=== PATIENT | male | born 1985 | race Two or more races ===

== ENCOUNTER 2021-02-08 06:26 | Emergency (ER) | payer SELFPAY ==
[2021-02-08] MEDS ORDERED: Ketorolac 30 MG/ML SDV IM ONE (06:49)
[2021-02-08] MEDS ORDERED: Cyclobenzaprine 10 MG Tab PO ONE (06:49)
--- NOTE | 2021-02-08 06:55 | EDM.PDOC ---
ED HPI GENERAL MEDICAL PROBLEM - General Chief Complaint: Back Pain or Injury Stated Complaint: BACK PAIN Time Seen by Provider: 02/08/21 06:40 - History of Present Illness INITIAL COMMENTS - FREE TEXT/NARRATIVE: HISTORY AND PHYSICAL: History of present illness: This is a healthy 35-year-old gentleman with no significant past medical history who presents ER today complaining of 3 repeat his left lower back. Patient reports that he has had back pain for approximately 1 month. Patient reports that 2 days ago he started working out and doing legs again and today the pain is excruciating. 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 Patient denies any recent fevers, shakes, chills, nausea, vomiting, diarrhea, dysuria, frequency, urgency, chest pain, shortness of breath. Patient denies any numbness to his upper or lower extremities. Patient denies any loss of bowel or bladder function. Patient denies any paresthesias to his perineum. Patient reports he has not taken any medications thus far for his pain prior to coming to the ED. Review of systems: As per history of present illness and below otherwise all systems reviewed and negative. Past medical history: As per history of present illness and as reviewed below otherwise noncontributory. Surgical history: As per history of present illness and as reviewed below otherwise noncontributory. Social history: No reported history of drug or alcohol abuse. Family history: As per history of present illness and as reviewed below otherwise noncontributory. Physical exam: This patient was seen and evaluated during the 2019 SARS-CoV-2 novel coronavirus pandemic period. Community viral transmission is ongoing at time of this encounter and the emergency department is operating under pandemic response procedures. Constitutional: Patient is oriented to person, place, and time. Appears well- developed and well-nourished. No distress. HEENT: Moist mucous membranes Head: Normocephalic and atraumatic Eyes: Right eye exhibits no discharge. Left eye exhibits no discharge. No scleral icterus Neck: Normal range of motion. No tracheal deviation present. Cardiovascular: Normal rate and regular rhythm. Pulmonary: Effort normal, no respiratory distress. Abdominal: No distention Musculoskeletal: Normal range of motion Neurologic: Alert and oriented to person, place and time. Skin: [place], warm and dry. Psychiatric: Normal mood and affect. Behavior is normal. Judgment and thought content normal. Nursing note and vital signs have been reviewed L3: The extension 5 out of 5 L4: Dorsiflexion 5 out of 5 L5: Able to point great toe up L2/3/4: Patellar reflex 2+ S1: Knee flexion 5 out of 5 S2: Plantar flexed toes Patient's ER physical exam is significant for severe pain and discomfort to palpation to his left lower back. Patient has no point C-spine, T-spine, L- spine tenderness to palpation. Patient has reproducible pain with rotation of his torso. Therapeutics: Toradol 30 mg IM Flexeril 10 mg p.o. Assessment and plan: This is a 35-year-old gentleman who presents ER today complaining of severe pain to his left lower back. Patient's pain appears to be highly consistent with musculoskeletal pain. Patient does not present with any signs or symptoms of be concerning for cauda equina syndrome, epidural abscess, or cord injury. Patient will be given dose of Toradol and Flexeril here in the ED and will be discharged home with a prescription for Flexeril, ibuprofen, and a short course of Ultram. Patient has been instructed to rest and to avoid any heavy exertion. Reassessment at the time of disposition demonstrates that the patient is in no acute distress. The patient has remained stable throughout the entire ED visit and is without objective evidence for acute process requiring urgent intervention or hospitalization. The patient is stable for discharge, counseling is provided as documented above, discussed symptomatic treatment and specific conditions for return. I have spoken with the patient/caregiver and discussed todays findings, in addition to providing specific details for the plan of care. Questions are answ ered and there is agreement with the plan. Definitive disposition and diagnosis as appropriate pending reevaluation and review of above. L Lower back Pain Score (Numeric/FACES): 9 - Related Data Allergies Allergy/AdvReac Type Severity Reaction Status Date / Time No Known Allergies Allergy Verified 02/08/21 06:35 Home Meds: Home Meds Cyclobenzaprine [Flexeril] 10 mg PO TID PRN #20 tab 02/08/21 [Rx] Ibuprofen 600 mg PO Q6HR PRN #30 tablet 02/08/21 [Rx] traMADol [Ultram] 50 mg PO Q6H PRN #12 tab 02/08/21 [Rx] Past Medical History - Past Surgical History GI Surgical History: Reports: Appendectomy Social & Family History - Family History Family Medical History: No Pertinent Family History - Caffeine Use Caffeine Use: Reports: Coffee - Recreational Drug Use Recreational Drug Use: No ED ROS GENERAL - Review of Systems Review Of Systems: See Below ED EXAM, GENERAL - Physical Exam Exam: See Below Course - Vital Signs Last Recorded V/S: Last Vital Signs Temp 98 F 02/08/21 07:14 Pulse 72 02/08/21 07:14 Resp 16 02/08/21 07:14 BP 126/46 L 02/08/21 07:14 Pulse Ox 98 02/08/21 07:14 - Orders/Labs/Meds Meds: Medications Discontinued Medications Generic Name Dose Route Start Last Admin Trade Name Freq PRN Reason Stop Dose Admin Cyclobenzaprine HCl 10 mg 02/08/21 06:49 02/08/21 06:52 Cyclobenzaprine 10 Mg Tab PO 02/08/21 06:50 10 mg ONETIME ONE Administration Ketorolac Tromethamine 30 mg 02/08/21 06:49 02/08/21 06:53 Ketorolac 30 Mg/Ml Sdv IM 02/08/21 06:50 30 mg ONETIME ONE Administration Departure - Departure Time of Disposition: 06:54 Disposition: Home, Self-Care 01 Condition: Good Clinical Impression: Acute low back pain Qualifiers: Back pain laterality: left Sciatica presence: with sciatica Sciatica laterality: sciatica of left side Qualified Code(s): M54.42 - Lumbago with sciatica, left side Sciatica Qualifiers: Laterality: left Qualified Code(s): M54.32 - Sciatica, left side - Discharge Information Prescriptions: Cyclobenzaprine [Flexeril] 10 mg PO TID PRN #20 tab PRN Reason: Muscle Spasm Ibuprofen 600 mg PO Q6HR PRN #30 tablet PRN Reason: Pain traMADol [Ultram] 50 mg PO Q6H PRN #12 tab PRN Reason: Pain Instructions: Acute Back Pain, Adult, Sciatica, Sciatica Rehab-SportsMed Referrals: PCP,None [Primary Care Provider] - Forms: ED Department Discharge Additional Instructions: You were seen and evaluated in the ER today secondary to severe pain to your lower back. While in the ER, you have been given a shot of Toradol and will be given a Flexeril tablet. We will send you home with a prescription for Flexeril which is a muscle relaxant to take 1 tablet every 8 hours as needed for pain. Ibuprofen 600 mg which is an anti-inflammatory medication to take every 6 hours as needed for pain. Ultram 50 mg which is a painkiller to take every 6 hours as needed for severe pain not relieved with the above. This medicine will make you sleepy. Please make an appointment to see your family doctor in the next 1 to 2 days for reevaluation. The following information is given to patients seen in the emergency department who are being discharged to home. This information is to outline your options for follow-up care. We provide all patients seen in our emergency department with a follow-up referral. The need for follow-up, as well as the timing and circumstances, are variable depending upon the specifics of your emergency department visit. If you don't have a primary care physician on staff, we will provide you with a referral. We always advise you to contact your personal physician following an emergency department visit to inform them of the circumstance of the visit and for follow-up with them and/or the need for any referrals to a consulting specia list. The emergency department will also refer you to a specialist when appropriate. This referral assures that you have the opportunity for follow-up care with a specialist. All of these measure are taken in an effort to provide you with optimal care, which includes your follow-up. Under all circumstances we always encourage you to contact your private physician who remains a resource for coordinating your care. When calling for follow-up care, please make the office aware that this follow-up is from your recent emergency room visit. If for any reason you are refused follow-up, please contact the [facility] at and asked to speak to the emergency department charge nurse. [facility] [address] [place] [id number] [facility] [address] [place] [address] Sepsis Event Note (ED) - Evaluation Sepsis Screening Result: No Definite Risk
== END 2021-02-08 07:15 | disposition home or self-care (01) ==
LOC: MW.ED 06:26
DX: M54.42 Lumbago with sciatica, left side (principal)
CPT/HCPCS: 96372; 99283; A9270; J1885

== ENCOUNTER 2023-02-22 09:40 | Emergency (ER) | payer SELFPAY ==
[2023-02-22 10:38] LABS: CARBON DIOXIDE,CO2 26.4 mmol/L (21.0-32.0); POTASSIUM,K 3.9 mmol/L (3.5-5.1)
== END 2023-02-22 12:39 | disposition home or self-care (01) ==
LOC: MW.ED 09:40
DX: R10.32 Left lower quadrant pain (principal); Z90.49 Acquired absence of other specified parts of digestive tract
CPT/HCPCS: 36415; 74176; 74176-26; 80053; 81001; 83690; 85025; 99283; 99284